=== PATIENT | female | born 1960 | race Caucasian/White ===

== ENCOUNTER 2021-08-22 13:28 | Emergency (ER) | payer MEDICARE, MEDICAID ==
[~2021-08-22] VITALS: Ht 180.3 cm; Wt 109.1 kg
[2021-08-22 13:33] VITALS: TEMP 97.5
[2021-08-22] MEDS ORDERED: LOPRESSOR 225 MG/TAB PO (14:10)
[2021-08-22] MEDS ORDERED: ULTRAM 50MG TAB50 MG PO (14:10)
[2021-08-22] MEDS ORDERED: VENTOLIN0.09 MG IH (14:10)
[2021-08-22] MEDS ORDERED: ATIVAN 1MG T1 MG/TAB PO (14:11)
[2021-08-22 16:14] VITALS: BP 139/91; PULSE 75
== END 2021-08-22 16:15 | disposition home or self-care (01) ==
LOC: COL.ER 13:28
DX: G43.909 Migraine, unspecified, not intractable, without status migrainosus (principal); F17.210 Nicotine dependence, cigarettes, uncomplicated
CPT/HCPCS: J1200; J1885; J2405